=== PATIENT | female | born 1985 | race Caucasian/White ===

== ENCOUNTER 2017-11-10 18:03 | Emergency (ER) | payer SELFPAY ==
[2017-11-10] MEDS ORDERED: Ondansetron ODT 4 MG TAB ONE (18:24)
[2017-11-10 18:57] LABS: #Basophils 0.1 thou/uL (0.0-0.2); #Eosinphils 0.1 thou/uL (0.0-0.7); #Lymphocytes 2.5 thou/uL (1.20-3.40); #Monocytes 0.7 thou/uL (0.11-0.59); #Neutrophils 7.6 thou/uL (1.40-6.50); %Eosinophils 0.6 % (0.0-10.0); %Lymphocytes 22.6 % (21.0-51.0); %Monocytes 6.2 % (0.0-10.0); %Neutrophils 69.6 % (42.0-75.0); Hemoglobin 13.7 g/dL (12.0-16.0); Mean Corpuscular HGB CONC 35.5 g/dL (32.0-36.0); Mean Corpuscular Hemoglobin 31.5 pg (27.0-31.0); Mean Corpuscular Volume 88.8 fL (78.0-98.0); Mean Platelet Volume 7.6 fL (7.4-10.4); Platelet Count 239 thou/uL (130-400); RBC Distribution Width 11.8 % (11.5-14.5); Red Blood Cell (RBC) Count 4.36 mill/uL (4.20-5.40); White Blood Cell (WBC) Count 10.9 thou/uL (4.8-10.8)
[2017-11-10 19:15] LABS: BHCG - Serum Negative (NEGATIVE); Pregs Control Background? CLEAR/WHITE (CLR/WHITE); Pregs Control Bar Appear? YES (CONTROL BAR)
[2017-11-10 19:18] LABS: ALT (SGPT) 29 U/L (8-55); AST (SGOT) 39 U/L (5-34); Albumin 4.4 g/dL (3.5-5.0); Alkaline Phosphatase 65 U/L (40-150); Anion Gap 14 mmol/L (10-20); BUN (Urea Nitrogen) 14 mg/dL (7.0-18.7); Bilirubin, Total 0.4 mg/dL (0.2-1.2); Calc. Creatinine Clearance 0 mL/min (70-130); Calcium 9.8 mg/dL (7.8-10.44); Carbon Dioxide 21 mmol/L (22-29); Chloride 107 mmol/L (98-107); Estimated GFR-MDRD 82; Globulin 3.3 g/dL (2.4-3.5); Glucose 128 mg/dL (70-105); Potassium 3.7 mmol/L (3.5-5.1); Protein, Total 7.7 g/dL (6.0-8.3); Sodium 138 mmol/L (136-145)
[2017-11-10 19:24] LABS: CKMB 0.8 ng/mL (0-6.6); Troponin I Less than 0.010 ng/mL (< 0.028)
== END 2017-11-10 19:52 | disposition home or self-care (01) ==
LOC: ERS 18:03
DX: I10 Essential (primary) hypertension (principal)
CPT/HCPCS: 36415; 80053; 82553; 84484; 84703; 85025; Q0162

== ENCOUNTER 2017-11-11 10:25 | Emergency (ER) | payer SELFPAY | END 2017-11-11 11:45 | disposition home or self-care (01) | LOC: ERS 10:25 | DX: F41.9 Anxiety disorder, unspecified (principal); I10 Essential (primary) hypertension; Z79.899 Other long term (current) drug therapy | CPT/HCPCS: 93005 ==

== ENCOUNTER 2018-01-28 11:11 | Emergency (ER) | payer OTHER ==
[2018-01-28 12:14] LABS: #Basophils 0.1 thou/uL (0.0-0.2); #Lymphocytes 1.9 thou/uL (1.20-3.40); #Monocytes 0.5 thou/uL (0.11-0.59); #Neutrophils 5.8 thou/uL (1.40-6.50); %Basophils 0.9 % (0.0-1.0); %Eosinophils 0.5 % (0.0-10.0); %Lymphocytes 22.5 % (21.0-51.0); %Monocytes 6.1 % (0.0-10.0); %Neutrophils 70.1 % (42.0-75.0); Hemoglobin 14.1 g/dL (12.0-16.0); Mean Corpuscular HGB CONC 34.7 g/dL (32.0-36.0); Mean Corpuscular Hemoglobin 31.2 pg (27.0-31.0); Mean Corpuscular Volume 89.9 fL (78.0-98.0); Mean Platelet Volume 8.1 fL (7.4-10.4); Platelet Count 258 thou/uL (130-400); Red Blood Cell (RBC) Count 4.52 mill/uL (4.20-5.40); White Blood Cell (WBC) Count 8.3 thou/uL (4.8-10.8)
[2018-01-28 12:34] LABS: ALT (SGPT) 54 U/L (8-55); AST (SGOT) 63 U/L (5-34); Albumin 4.6 g/dL (3.5-5.0); Alkaline Phosphatase 58 U/L (40-150); Anion Gap 14 mmol/L (10-20); BUN (Urea Nitrogen) 14 mg/dL (7.0-18.7); Bilirubin, Total 0.7 mg/dL (0.2-1.2); CK (CPK) 162 U/L (29-168); Calc. Creatinine Clearance 0 mL/min (70-130); Calcium 10.1 mg/dL (7.8-10.44); Carbon Dioxide 22 mmol/L (22-29); Chloride 104 mmol/L (98-107); Estimated GFR-MDRD 82; Globulin 3.7 g/dL (2.4-3.5); Glucose 87 mg/dL (70-105); Lipase 26 U/L (8-78); Potassium 3.5 mmol/L (3.5-5.1); Protein, Total 8.3 g/dL (6.0-8.3); Sodium 136 mmol/L (136-145)
[2018-01-28 12:38] LABS: CKMB 1.2 ng/mL (0-6.6); Troponin I Less than 0.010 ng/mL (< 0.028)
== END 2018-01-28 13:06 | disposition home or self-care (01) ==
LOC: ERS 11:11
DX: F41.0 Panic disorder [episodic paroxysmal anxiety] (principal); R07.89 Other chest pain; I10 Essential (primary) hypertension; Z79.899 Other long term (current) drug therapy
CPT/HCPCS: 36415; 80053; 82553; 83690; 84484; 85025; 85379; 93005

== ENCOUNTER 2018-07-10 19:24 | Emergency (ER) | payer OTHER ==
[2018-07-10] MEDS ORDERED: Morphine 4 MG/ML VIAL ONE (20:16)
[2018-07-10] MEDS ORDERED: Ondansetron PF 4 MG/2 ML Vial ONE (20:16)
[2018-07-10] MEDS ORDERED: Ketorolac Tromethamine 30 MG/ML VIAL ONE (21:59)
[2018-07-10] MEDS ORDERED: traMADol HCl 50 MG TAB ONE (21:59)
== END 2018-07-10 21:30 | disposition home or self-care (01) ==
LOC: ERS 19:24
DX: R51 Headache (principal); F41.9 Anxiety disorder, unspecified; I10 Essential (primary) hypertension
CPT/HCPCS: 96361; 96374; 96375; J1885; J2270; J2405

== ENCOUNTER 2018-07-12 07:56 | Emergency (ER) | payer OTHER ==
[2018-07-12] MEDS ORDERED: Ondansetron PF 4 MG/2 ML Vial ONE (08:31)
[2018-07-12] MEDS ORDERED: diphenhydrAMINE 50 MG/ML VIAL ONE ×2 (08:31→08:33)
[2018-07-12] MEDS ORDERED: Metoclopramide HCl 10 MG/2 ML VIAL ONE (08:31)
== END 2018-07-12 14:06 | disposition home or self-care (01) ==
LOC: ERS 07:56
DX: G97.1 Other reaction to spinal and lumbar puncture (principal); I10 Essential (primary) hypertension; F41.9 Anxiety disorder, unspecified; Z79.891 Long term (current) use of opiate analgesic
CPT/HCPCS: 62272; 96365; 96375; J1200; J2405; J2765

== ENCOUNTER 2019-05-19 16:20 | Outpatient (CLI) | payer OTHER ==
--- NOTE | 2019-05-19 16:39 | RAD ---
EXAM: Chest Two Views 05/19/2019 4:36 PM HISTORY: Cough COMPARISON: Prior exam dated September 06, 2018 FINDINGS: Heart: Normal in size and contour. Pulmonary vessels: Normal. Costophrenic angles: Clear. Lungs: No acute airspace consolidation. Pneumothorax: None. Osseous structures:Intact. Additional findings: None. IMPRESSION: No significant acute intrathoracic disease.
== END 2019-05-19 16:21 | disposition home or self-care (01) ==
LOC: BICRAD 16:20
PROVIDERS: ATTEND Family Medicine
DX: R05 Cough (principal)
CPT/HCPCS: 71046

== ENCOUNTER 2019-11-24 04:31 | Emergency (ER) | payer OTHER ==
[2019-11-24 05:05] LABS: Bilirubin Negative (Negative); Blood, Urine 2+ (Negative); Clarity Turbid (Clear); Glucose, Urine (Dipstick) Normal (Negative); Ketone, Urine Negative (Negative); Leukocyte Negative Leu/uL (Negative); Nitrite Negative (Negative); Protein, Urine (Dipstick) Negative (Neg-Trace); Specific Gravity, Urine 1.012 (1.002-1.036); Squamous Epithelial 0-3 HPF (0-3); Urobilinogen Normal mg/dL (Less than 2); WBC/HPF 0-3 HPF (0-3)
[2019-11-24 05:18] LABS: Bacteria/HPF 1+ HPF (None Seen)
== END 2019-11-24 04:51 | disposition left against medical advice (07) ==
LOC: ERS 04:31
DX: Z53.21 Procedure and treatment not carried out due to patient leaving prior to being seen by health care provider (principal)
CPT/HCPCS: 81003; 81015

== ENCOUNTER 2019-11-28 12:45 | Outpatient (CLI) | payer OTHER ==
[2019-11-28 16:24] LABS: #Basophils 0.1 thou/uL (0.0-0.2); #Eosinphils 0.1 thou/uL (0.0-0.7); #Lymphocytes 1.8 thou/uL (1.20-3.40); #Monocytes 0.4 thou/uL (0.11-0.59); %Basophils 0.8 % (0.0-1.0); %Eosinophils 1.2 % (0.0-10.0); %Lymphocytes 24.7 % (21.0-51.0); %Monocytes 5.6 % (0.0-10.0); %Neutrophils 67.6 % (42.0-75.0); Hemoglobin 14.3 g/dL (12.0-16.0); Mean Corpuscular HGB CONC 33.6 g/dL (32.0-36.0); Mean Corpuscular Hemoglobin 30.5 pg (27.0-31.0); Mean Corpuscular Volume 90.9 fL (78.0-98.0); Mean Platelet Volume 8.8 fL (7.4-10.4); Platelet Count 304 thou/uL (130-400); RBC Distribution Width 12.3 % (11.5-14.5); Red Blood Cell (RBC) Count 4.68 mill/uL (4.20-5.40); White Blood Cell (WBC) Count 7.4 thou/uL (4.8-10.8)
[2019-11-28 16:35] LABS: PTT 28.3 sec (22.9-36.1); Prothrombin Time 13.1 sec (12.0-14.7)
[2019-11-28 16:36] LABS: Anion Gap 14 mmol/L (10-20); BUN (Urea Nitrogen) 16 mg/dL (7.0-18.7); Calc. Creatinine Clearance 0 mL/min (70-130); Calcium 10.1 mg/dL (7.8-10.44); Carbon Dioxide 27 mmol/L (22-29); Chloride 104 mmol/L (98-107); Estimated GFR-MDRD 73; Glucose 83 mg/dL (70-105); Potassium 4.1 mmol/L (3.5-5.1); Sodium 141 mmol/L (136-145)
[2019-11-29 14:18] LABS: SARS-CoV-2 MS2 Positive; SARS-CoV-2 N Gene Negative; SARS-CoV-2 S Gene Negative; SARS-CoV-2 by NAA Not Detected (NotDetected); SARS-CoV-2 orf1ab Negative
== END 2019-11-28 12:46 | disposition home or self-care (01) ==
LOC: LABBT 12:45
PROVIDERS: ATTEND Urology
DX: Z01.812 Encounter for preprocedural laboratory examination (principal); Z11.59 Encounter for screening for other viral diseases; N20.1 Calculus of ureter
CPT/HCPCS: 80048; 81001; 85025; 85610; 85730; 87086; 87635; U0003

== ENCOUNTER 2019-11-30 10:35 | Day surgery (SDC) | payer OTHER ==
[2019-11-29 12:19] VITALS: BMI 33.0
[~2019-11-30 10:35] MED LIST: Dexamethasone 20 MG/5 ML VIAL ONE; Lidocaine 1% PF 5 ML VIAL ONE; Ondansetron PF 4 MG/2 ML Vial ONE; PROPOFOL 200 MG/20 ML VIAL ONE
[2019-11-30] MEDS ORDERED: Levofloxacin 500 mg/D5W 100 ml Premix Bag ONE (11:10)
--- NOTE | 2019-11-30 11:34 | RAD ---
Radiograph abdomen one view: 11/30/2019 HISTORY: 44-year-old female with left renal colic COMPARISON: None FINDINGS: There is a 3 x 2 mm calcific density overlying the right renal lower pole shadow. A minimal distance inferior to that, there is a smaller calcific density. A punctate round 2 mm calcific density overlies left renal mid-lower pole shadow. No definite calculus is identified in the kidneys on the contrast-enhanced CT of 02/26/2016. There is a 7 x 4 mm focal calcific density overlying the left sacral ala at approximately the S2 leve l, close to the left SI joint. This is not visualized on the spin tank tender radiograph for the CT of 02/26/2016. No bone island is identified in that location on that prior CT. Bowel gas pattern is normal. No evidence of organomegaly. IMPRESSION: 1.) Possible 7 mm calculus in distal left ureter. 2) Questionable bilateral nephrolithiasis with possible tiny bilateral renal calculi.
[2019-11-30] MEDS ORDERED: Iothalamate Meglumine 60% 50 ML VIAL FS ONE (11:35)
[2019-11-30] MEDS ORDERED: Midazolam HCl 2 mg/2 ml Vial ONE (11:55)
[2019-11-30] MEDS ORDERED: Fentanyl 100 MCG/2 ML VIAL ONE (11:56)
[2019-11-30] MEDS ORDERED: Meperidine HCl/PF 25 MG/ML VIAL ONE (13:00)
[2019-11-30] MEDS ORDERED: Oxybutynin 5 MG TAB ONE (13:11)
[2019-11-30] MEDS ORDERED: Phenazopyridine HCl 97.5 MG TABLET ONE (13:11)
--- NOTE | 2019-11-30 14:12 | OP ---
DATE OF PROCEDURE: 11/30/2019 PREOPERATIVE DIAGNOSES: 1. A 34-year-old female with history of recurrent kidney stone. 2. Left hydronephrosis due to ureteral calculi at the level of L3, 6 mm with hydronephrosis. 3. Nonobstructing bilateral renal calculi: Right punctate x2, lower pole on the right about 2 to 3 mm, left punctate renal lithiasis x3. POSTOPERATIVE DIAGNOSES: 1. A 34-year-old female with history of recurrent kidney stone. 2. Left hydronephrosis due to ureteral calculi at the level of L3, 6 mm with hydronephrosis. 3. Nonobstructing bilateral renal calculi: Right punctate x2, lower pole on the right about 2 to 3 mm, left punctate renal lithiasis x3. PROCEDURES PERFORMED: Cystoscopy, left retrograde pyelogram, balloon dilatation of the left distal ureter, ureteroscopy, laser lithotripsy of ureteral calculi, basket extraction, 4.8 x 28 double-J ureteral stent with distal tail in situ. ANESTHESIA: General. COMPLICATIONS: None apparent. DISPOSITION: To recovery room in stable condition. SPECIMEN: Stone for chemical analysis. INDICATIONS FOR PROCEDURE AND HISTORY: Marilyn is a 34-year-old female, who was worked into my office due to significant left flank pain. She presented to [facility] Emergency Room. CT demonstrating the stone in the left ureter as above, and presents today for ureteroscopy, laser lithotripsy. Risks and complications of procedure were discussed with her in detail including, but not limited to: Bleeding, pain, infection, injury to adjacent organs, ureteral renal bladder injury, urosepsis, possible secondary procedure, stricture formation. I informed the patient that if I am unable to access the proximal ureter, possible secondary procedure would be advised and she verbalizes understanding. She has been fully informed regarding need for indwelling ureteral stent periprocedural. DESCRIPTION OF PROCEDURE: After an informed consent was signed, the patient was taken to the operating room, placed in a dorsal lithotomy position with the genital area prepped and draped in the usual surgical sterile fashion. A 21-Cambodian cystoscope was utilized for cystoscopy, which demonstrated normal urethra. Bladder was entered, which demonstrated some irritative changes of the trigone. The UOs are in normal orthotopic position with patulous morphology. There was no stone within the bladder. At this time, an open-ended catheter was utilized to intubate the left UO and a stone was visible in the level of mid SI joint on preoperative fluoroscopy. A gentle retrograde was performed confirming the stone in its location. A 0.035 Sensor wire was then attempted to be passed. There was some resistance passing the wire, however, we were able to negotiate into the left upper pole. We performed a balloon dilatation of the intramural ureter 4 cm 12-Cambodian [employer], in 2 segments. after the balloon dilatation, we were able to pass 11/13-Cambodian 28 cm navigator just proximal to the stone. Prior to doing this, we used a 10-Cambodian dual-lumen access sheath and placed a second safety wire of 0.035 Super Stiff. Over the Super Stiff wire, we passed the access sheath to the level of the stone. A flexible ureteroscope was then advanced over the guidewire. Guidewire was then subsequently removed as we were able to visualize the stone. It appeared to be soft, using 200 micron laser fiber at 0.3 joules. We laser lithotripsied the stone into tiny fragments and dust-like debris. The larger stone fragments of the main components were of two and this was basket extracted atraumatically. There was endoscopic clearance of the ureteral stone noted. I did perform a pyeloscopy, which demonstrated no obvious stone within the kidney itself. There were multiple random plaques consistent with recurrent stone former. We surveyed the ureter, which demonstrated no evidence of ureteral mucosal injury and a 4.8 x 28 cm ureteral stent was placed with a distal tail in situ. She related she had significant discomfort with her prior stent. Therefore, I did put a 4.8-Cambodian stent and this was confirmed to be in good position on fluoroscopy and bladder was completely emptied and she tolerated the procedure well. She was already provided pain medication on her previous visit. She is prescribed ciprofloxacin until followup appointment with me next week for stent pull, Azo p.r.n., Ditropan 10 mg XL one p.o. daily, Colace p.o. b.i.d. addendum: I was called by PACU nurse, patient ready to be discharged however requesting the ureteral stent to be removed, as she has bladder spasms Long discussion with patient at bedside regarding indications for ureteral stent. With further consultation, I informed the patient that we will provide further bladder spasmodics Levsin 0.25 mg sublingual every 6 hours as needed, moreover she has significant anxiety, short course of anxiolytics provided as needed. After full consultation and need for ureteral stent she agreed to have a ureteral stent, as recommended and agreed upon by her preoperatively. Job ID: [id number] SVEN
[2019-11-30] MEDS ORDERED: Hyoscyamine Sulfate SL 0.125 mg Tablet ONE ×2 (14:34→14:36)
[2019-11-30] MEDS ORDERED: Hyoscyamine Sulfate SL 0.125 mg Tablet SL SCH (14:45)
[2019-11-30] MEDS ORDERED: ALPRAZolam 0.25 MG TAB PO SCH (14:45)
--- NOTE | 2019-11-30 14:56 | RAD ---
RETROGRADE PYELOGRAM: Eight fluorosocpic images presented from a retrograde study. INDICATION: Intraoperative imaging during retrograde pyelogram study. FINDINGS/IMPRESSION: These images show wire inserted in the left ureter and coiled within the left renal pelvis. Final im ages show placement of a left ureteral stent. POS: AGW
--- NOTE | 2019-11-30 16:24 | EKG ---
Test Reason : PREOP Blood Pressure : / mmHG Vent. Rate : 077 BPM Atrial Rate : 077 BPM P-R Int : 178 ms QRS Dur : 088 ms QT Int : 378 ms P-R-T Axes : 056 053 040 degrees QTc Int : 427 ms Normal sinus rhythm Normal ECG Confirmed by RUEL MOORE ([id number]) on 11/30/2019 4:24:07 PM Referred By: JASON Confirmed By:RUEL MOORE
== END 2019-11-30 15:35 | disposition home or self-care (01) ==
LOC: SDC 10:35
PROVIDERS: ATTEND Urology
PROC: 0T778DZ Dilation of Left Ureter with Intraluminal Device, Via Natural or Artificial Opening Endoscopic (ICD-10-PCS; principal; 2019-11-30)
PROC: 0TC78ZZ Extirpation of Matter from Left Ureter, Via Natural or Artificial Opening Endoscopic (ICD-10-PCS; principal; 2019-11-30)
DX: N13.2 Hydronephrosis with renal and ureteral calculous obstruction (principal); N32.89 Other specified disorders of bladder; G93.2 Benign intracranial hypertension; F41.9 Anxiety disorder, unspecified; I10 Essential (primary) hypertension; E66.9 Obesity, unspecified; Z68.33 Body mass index [BMI] 33.0-33.9, adult; Z79.899 Other long term (current) drug therapy; Z88.0 Allergy status to penicillin
CPT/HCPCS: 36600; 74018; 74420; 82365; 84702; 88300; 93005; 93010; J1100; J1956; J2175; J2250; J2405; J2704; J3010

== ENCOUNTER 2020-03-09 06:47 | Outpatient (CLI) | payer OTHER ==
[2020-03-09 16:06] LABS: BHCG - Serum Negative (NEGATIVE); Pregs Control Background? CLEAR/WHITE (CLR/WHITE); Pregs Control Bar Appear? YES (CONTROL BAR)
[2020-03-11 12:10] LABS: SARS-CoV-2 MS2 Positive; SARS-CoV-2 N Gene Positive; SARS-CoV-2 S Gene Positive; SARS-CoV-2 by NAA DETECTED (NotDetected); SARS-CoV-2 orf1ab Positive
== END 2020-03-09 06:48 | disposition home or self-care (01) ==
LOC: LABBT 06:47
PROVIDERS: ATTEND Otolaryngology Plastic Surgery within the Head & Neck
DX: U07.1 COVID-19 (principal); Z01.812 Encounter for preprocedural laboratory examination; J35.1 Hypertrophy of tonsils; J35.2 Hypertrophy of adenoids; J35.8 Other chronic diseases of tonsils and adenoids
CPT/HCPCS: 84703; 85014; 87635; U0003

== ENCOUNTER 2023-01-26 18:34 | Emergency (ER) | payer OTHER, SELFPAY ==
[2023-01-26 20:07] LABS: #Basophils 0.1 thou/uL (0.0-0.2); #Eosinphils 0.1 thou/uL (0.0-0.7); #Monocytes 0.7 thou/uL (0.11-0.59); #Neutrophils 7.1 thou/uL (1.40-6.50); %Basophils 0.8 % (0.0-1.0); %Eosinophils 1.3 % (0.0-10.0); %Lymphocytes 22.3 % (21.0-51.0); %Monocytes 6.8 % (0.0-10.0); %Neutrophils 68.3 % (42.0-75.0); Hematocrit 41.2 % (36.0-47.0); Hemoglobin 13.7 g/dL (12.0-16.0); Mean Corpuscular HGB CONC 33.3 g/dL (32.0-36.0); Mean Corpuscular Hemoglobin 30.4 pg (27.0-31.0); Mean Corpuscular Volume 91.4 fl (78.0-98.0); Mean Platelet Volume 9.9 fL (7.4-10.4); Platelet Count 305 10x3/uL (130-400); RBC Distribution Width 12.7 % (11.5-14.5); Red Blood Cell (RBC) Count 4.51 mill/uL (4.20-5.40); White Blood Cell (WBC) Count 10.3 10x3/uL (4.8-10.8)
[2023-01-26 20:15] LABS: BHCG - Serum Negative (NEGATIVE); Pregs Control Background? CLEAR/WHITE (CLR/WHITE); Pregs Control Bar Appear? YES (CONTROL BAR)
[2023-01-26 20:25] LABS: Bacteria/HPF 2+ HPF (None Seen); Bilirubin Negative (Negative); Blood, Urine Negative (Negative); CAUTI Indications for Culture Dysuria,urgency,freq; Clarity Clear (Clear); Glucose, Urine (Dipstick) Normal (Negative); Ketone, Urine Negative (Negative); Leukocyte Negative Leu/uL (Negative); Nitrite Negative (Negative); Protein, Urine (Dipstick) 20 mg/dL (Neg-Trace); RBC/HPF 0-3 HPF (0-3); Specific Gravity, Urine 1.024 (1.002-1.036); Urobilinogen Normal mg/dL (Less than 2); WBC/HPF 0-3 HPF (0-3)
[2023-01-26 20:27] LABS: Squamous Epithelial 21-50 HPF (0-3); Urine Culture Reflex No No
[2023-01-26 20:31] LABS: Albumin 4.6 g/dL (3.5-5.0)
[2023-01-26 20:32] LABS: Chloride 105 mmol/L (98-107); Potassium 3.8 mmol/L (3.5-5.1); Sodium 139 mmol/L (136-145)
[2023-01-26 20:33] LABS: Calcium 9.7 mg/dL (7.8-10.44); Globulin 3.6 g/dL (2.4-3.5); Glucose 91 mg/dL (70-105); Protein, Total 8.2 g/dL (6.0-8.3)
[2023-01-26 20:35] LABS: Bilirubin, Total 0.3 mg/dL (0.2-1.2)
[2023-01-26 20:36] LABS: Alkaline Phosphatase 70 U/L (40-110)
[2023-01-26 20:37] LABS: BUN (Urea Nitrogen) 15 mg/dL (7.0-18.7); Calc. Creatinine Clearance 0 mL/min (70-130); Estimated GFR 68
[2023-01-26 20:38] LABS: AST (SGOT) 25 U/L (5-34)
[2023-01-26 20:39] LABS: ALT (SGPT) 23 U/L (8-55)
[2023-01-26] MEDS ORDERED: Ibuprofen 800 MG TAB ONE (20:49)
[2023-01-26 20:51] LABS: Anion Gap 15 mmol/L (10-20); Carbon Dioxide 23 mmol/L (22-29)
== END 2023-01-26 22:07 | disposition home or self-care (01) ==
LOC: ERS 18:34
DX: R10.9 Unspecified abdominal pain (principal); N76.0 Acute vaginitis; I10 Essential (primary) hypertension
CPT/HCPCS: 36415; 74176; 80053; 81001; 84703; 85025